=== PATIENT | male | born 1980 | race Caucasian/White ===

== ENCOUNTER 2017-03-14 02:53 | Observation (INO) | payer MEDICAID ==
[2017-03-14 03:41] LABS: BASO # 0.1 K/uL (0.0-0.2); BASO % 0.6 % (0.0-2.0); HEMATOCRIT 46.5 % (35.0-51.0); LYMPH # 1.6 K/uL (1.0-4.3); LYMPH % 18.8 % (20.0-40.0); MEAN CELL VOLUME 91.1 fl (80.0-94.0); MEAN CORPUSCULAR HEMOGLOBIN 30.5 pg (27.0-31.0); MEAN CORPUSCULAR HGB CONC 33.5 g/dL (33.0-37.0); MEAN PLATELET VOLUME 8.3 fl (7.2-11.7); MONO # 0.5 K/uL (0.0-0.8); MONO % 6.2 % (0.0-10.0); NEUT # 6.3 K/uL (1.8-7.0); NEUT % 74.4 % (50.0-75.0); NRBC % 0.1 % (0.0-0.0); RED CELL DISTRIBUTION WIDTH 14.9 % (11.5-14.5); WHITE BLOOD COUNT 8.5 K/uL (4.8-10.8)
[2017-03-14 03:50] LABS: CHLORIDE 108 mmol/L (98-107); POTASSIUM 3.8 MMOL/L (3.6-5.0); SODIUM 146 mmol/l (132-148)
[2017-03-14 03:52] LABS: GFR AFRICAN-AMERICAN > 60
[2017-03-14 03:53] LABS: ALB/GLOB RATIO 1.3 (1.0-2.1); ALKALINE PHOSPHATASE 97 U/L (38-126); ALT/SGPT 51 U/L (21-72); AST/SGOT 32 U/L (17-59); BILIRUBIN,TOTAL 0.5 mg/dl (0.2-1.3); BLOOD UREA NITROGEN 14 mg/dl (9-20); CALCIUM 9.1 mg/dL (8.4-10.2); CARBON DIOXIDE 21 mmol/L (22-30); GLUCOSE,RANDOM 102 mg/dL (75-110); TOTAL PROTEIN 8.7 G/DL (6.3-8.2)
[2017-03-14 03:54] LABS: ALCOHOL SERUM 196 mg/dl (0-10)
--- NOTE | 2017-03-14 04:13 | ED PDOC ---
HPI: Psych/Substance Abuse Time Seen by Provider: 03/14/17 03:02 Chief Complaint (Nursing): Substance Abuse Chief Complaint (Provider): Substance Abuse History/Exam Limitations: other (substance abuse) Onset/Duration Of Symptoms: Hrs Current Symptoms Are (Timing): Still Present Additional Complaint(s): 36 y/o male presents to the emergency department via EMS for suspected substance abuse after psychotic absurd behavior was observed when patient was trying to have sexual intercourse with a stop sign prior to arrival. Patient is extremely agitated and uncooperative in ED. Of note, patient was seen in the ED for similar bizarre behavior about 10 months ago and tested positive for PCP. Past Medical History Reviewed: Historical Data, Nursing Documentation, Vital Signs Vital Signs: Last Vital Signs Temp 98.9 F 03/14/17 02:55 Pulse 144 H 03/14/17 02:55 Resp 17 03/14/17 02:55 BP 158/112 H 03/14/17 02:55 Pulse Ox 97 03/14/17 02:55 - Medical History PMH: Asthma Denies: Diabetes, Hepatitis, HIV, HTN, Seizures, Sexually Transmitted Disease - Surgical History Surgical History: No Surg Hx - Family History Family History: States: No Known Family Hx - Social History Alcohol: Social Drugs: Other - Allergies Allergies/Adverse Reactions: Allergies Allergy/AdvReac Type Severity Reaction Status Date / Time No Known Allergies Allergy Verified 03/14/17 02:57 Review of Systems Review Of Systems: ROS cannot be obtained secondary to pt's inabilty to answer questions. Physical Exam - Reviewed Nursing Documentation Reviewed: Yes Vital Signs Reviewed: Yes - Physical Exam Appears: Positive for: Non-toxic, No Acute Distress Head Exam: Positive for: ATRAUMATIC, NORMOCEPHALIC Skin: Positive for: Normal Color, Warm, Dry Neck: Positive for: Normal, Supple Cardiovascular/Chest: Positive for: Regular Rate, Rhythm. Negative for: Murmur Respiratory: Positive for: Normal Breath Sounds. Negative for: Accessory Muscle Use, Respiratory Distress Gastrointestinal/Abdominal: Positive for: Normal Exam, Soft. Negative for: Tenderness Extremity: Positive for: Normal ROM. Negative for: Pedal Edema Neurologic/Psych: Positive for: Alert, Oriented, Mood/Affect (Agitated and uncooperative). Negative for: Other (No focal deficits ) - Laboratory Results Result Diagrams: 03/14/17 03:35 03/14/17 03:35 - ECG O2 Sat by Pulse Oximetry: 97 (RA) Pulse Ox Interpretation: Normal Medical Decision Making Medical Decision Making: Time: 03:02 Initial impression: Substance abuse Initial plan: --Drug Screen, Urine Stat --Haldol 5 mg IM --Ativan 2 mg IM --AccuCheck --Restraint: Violent or harmful to self or others --Revaluation Time: 04:01 --Admit to hospital: Observation for Substance induced psychosis Scribe Attestation: Documented by Li Khan, acting as a scribe for Amilcar Grubbs MD. Provider Scribe Attestation: All medical record entries made by the Scribe were at my direction and personally dictated by me. I have reviewed the chart and agree that the record accurately reflects my personal performance of the history, physical exam, medical decision making, and the department course for this patient. I have also personally directed, reviewed, and agree with the discharge instructions and disposition. ED OBSERVATION Date of observation admission: 03/14/17 Time of observation admission: 04:01 - Observation admission statement Patient is being placed in observation because:: Observation for Substance induced psychosis - Goals of Observation Goals of observation are:: clinical sobriety. - Progress Note Progress Note: 03/14/17 05:30 --Patient is asleep and resting comfortably. Pending clinical sobriety. Time: 07:00 --Patient is signed out to Dr. Prado Disposition - Clinical Impression Clinical Impression: Substance use disorder Counseled Patient/Family Regarding: Studies Performed - Disposition Disposition: Transfer of Care (to Dr. Prado) Disposition Time: 04:00 Condition: STABLE
--- NOTE | 2017-03-14 06:13 | ED PDOC ---
- Laboratory Results Result Diagrams: 03/14/17 03:35 03/14/17 03:35 - ECG O2 Sat by Pulse Oximetry: 97 (RA) Pulse Ox Interpretation: Normal Medical Decision Making Medical Decision Making: Time: 07:00 --Transfer of care from Dr. Grubbs pending sobriety and crisis Scribe Attestation: Documented by Fiordaliza Nina acting as a scribe for Shahla Prado MD MD Scribe Attestation: All medical record entries made by the Scribe were at my direction and personally dictated by me. I have reviewed the chart and agree that the record accurately reflects my personal performance of the history, physical exam, medical decision making, and the department course for this patient. I have also personally directed, reviewed, and agree with the discharge instructions and disposition.
[2017-03-14 09:52] VITALS: BP 133/86; PULSE 113; RESP 16; TEMP 98.4
[2017-03-14 21:26] VITALS: O2SAT 97
== END 2017-03-14 12:48 | disposition home or self-care (01) ==
LOC: H.ER 02:53 → H.EROBSV 04:01
PROVIDERS: ADMIT Emergency Medicine; ATTEND Emergency Medicine
DX: F10.129 Alcohol abuse with intoxication, unspecified (principal); F19.10 Other psychoactive substance abuse, uncomplicated; Y90.6 Blood alcohol level of 120-199 mg/100 ml; J45.909 Unspecified asthma, uncomplicated
CPT/HCPCS: 80053; 85025; 96372; 99283; G0378; G0480; J1630; J2060

== ENCOUNTER 2017-11-20 02:39 | Emergency (ER) | payer MEDICAID, OTHER ==
[2017-11-20 02:52] VITALS: BP 160/73; PULSE 115; RESP 16; TEMP 97.8; O2SAT 97
--- NOTE | 2017-11-20 03:34 | ED PDOC ---
HPI: Psych/Substance Abuse Time Seen by Provider: 11/20/17 02:47 Chief Complaint (Nursing): Substance Abuse Chief Complaint (Provider): Substance Abuse History Per: Patient Modifying Factor(s): Marijuana Additional Complaint(s): Newton Burns is a 37 year old male that was brought to the ED for substance abuse after he was found sleeping in the street. Patient admits to smoking marijuana earlier tonight. Past Medical History Reviewed: Historical Data, Nursing Documentation, Vital Signs Vital Signs: Last Vital Signs Temp 97.8 F 11/20/17 02:50 Pulse 115 H 11/20/17 02:50 Resp 16 11/20/17 02:50 BP 160/73 H 11/20/17 02:50 Pulse Ox 97 11/20/17 02:50 - Medical History PMH: Asthma Denies: Diabetes, Hepatitis, HIV, HTN, Chronic Kidney Disease, Seizures, Sexually Transmitted Disease - Surgical History Surgical History: No Surg Hx - Family History Family History: States: Unknown Family Hx - Social History Drugs: Cannabis - Allergies Allergies/Adverse Reactions: Allergies Allergy/AdvReac Type Severity Reaction Status Date / Time No Known Allergies Allergy Verified 11/20/17 02:49 Review of Systems ROS Statement: Except As Marked, All Systems Reviewed And Found Negative Physical Exam - Reviewed Nursing Documentation Reviewed: Yes Vital Signs Reviewed: Yes - Physical Exam Appears: Positive for: Non-toxic, No Acute Distress Head Exam: Positive for: ATRAUMATIC, NORMOCEPHALIC Skin: Positive for: Normal Color Eye Exam: Positive for: Normal appearance Respiratory: Negative for: Respiratory Distress Extremity: Positive for: Normal ROM Neurologic/Psych: Positive for: Alert, Oriented, Gait (steady) - ECG O2 Sat by Pulse Oximetry: 97 (RA) Pulse Ox Interpretation: Normal Medical Decision Making Medical Decision Making: Impression: Substance Abuse Plan: * Patient left without treatment complete, did not sign discharge papers. Scribe Attestation: Documented by Shannan Echevarria, acting as a scribe for Rafael Bender MD. Provider Scribe Attestation: All medical record entries made by the Scribe were at my direction and personally dictated by me. I have reviewed the chart and agree that the record accurately reflects my personal performance of the history, physical exam, medical decision making, and the department course for this patient. I have also personally directed, reviewed, and agree with the discharge instructions and disposition. Disposition - Clinical Impression Clinical Impression: Substance abuse - Patient ED Disposition Is Patient to be Admitted: No - Disposition Disposition: Left W/O Treatment Disposition Time: 03:25 Condition: STABLE
== END 2017-11-20 03:45 | disposition left against medical advice (07) ==
LOC: H.ER 02:39
DX: F12.90 Cannabis use, unspecified, uncomplicated (principal); J45.909 Unspecified asthma, uncomplicated